=== PATIENT | male | born 1960 | race American Indian/Alaskan Native ===

== ENCOUNTER 2020-09-07 06:21 | Emergency (ER) | payer MEDICAID ==
[2020-09-07] MEDS ORDERED: ACETAMINOPHEN 325 MG TAB PO ONE (09:45)
--- NOTE | 2020-09-07 10:28 | XRay Report ---
CHEST 2 VIEWS INDICATION / CLINICAL INFORMATION: fever, generalized weakness. COMPARISON: None available. FINDINGS: SUPPORT DEVICES: None. HEART / MEDIASTINUM: No significant abnormality. LUNGS / PLEURA: There is a streaky opacity in the right lung base. Lungs otherwise appear clear. No p neumothorax. ADDITIONAL FINDINGS: No significant additional findings. IMPRESSION: 1. Streaky parenchymal opacity in the right lung base that could potentially represent chronic scarri ng. However, developing infectious process could also appear similar. Signer Name: Valentin Dang MD Signed: 09/07/2020 10:23 AM Workstation Name: [id number]
[2020-09-07 10:36] LABS: Basophils % (Auto) 0.4 % (0.0-1.8); Eosinophils % (Auto) 0.1 % (0.0-4.3); Hematocrit 40.3 % (35.5-45.6); Hemoglobin 13.5 gm/dl (11.8-15.2); Lymphocytes # (Auto) 1.6 K/mm3 (1.2-5.4); Lymphocytes % (Auto) 34.6 % (13.4-35.0); Mean Corpuscular HGB Conc 34 % (32-34); Mean Corpuscular Volume 90 fl (84-94); Monocytes # (Auto) 0.3 K/mm3 (0.0-0.8); Monocytes % (Auto) 7.1 % (0.0-7.3); Platelet Count 265 K/mm3 (140-440); Red Cell Distribution Width 14.2 % (13.2-15.2)
--- NOTE | 2020-09-07 10:36 | Emergency Department Report ---
ED General Adult HPI - General Chief complaint: Pain General Stated complaint: BODYACHES Time Seen by Provider: 09/07/20 09:38 Source: patient Mode of arrival: Ambulatory Limitations: No Limitations - History of Present Illness Initial comments: Patient is a 60-year-old male who presents emergency room with complaints of generalized body aches that began 3 days ago. He has associated decreased appetite, generalized weakness, chills, mild abdominal discomfort. He denies any nausea, vomiting, diarrhea, dysuria, dark urine, cough, shortness of breath, chest pain. He denies any past medical history. He states that he has an allergy to chloroquine. He denies any sick contacts or recent travel. Severity scale (0 -10): 5 - Related Data Previous Rx's Medication Instructions Recorded Last Taken Type Azithromycin [Zithromax Z-EHSAN] 250 mg PO DAILY 5 Days #6 tablet 09/07/20 Unknown Rx ED Review of Systems ROS: Stated complaint: BODYACHES Other details as noted in HPI Comment: All other systems reviewed and negative ED Past Medical Hx - Past Medical History Previous Medical History?: No - Surgical History Past Surgical History?: No - Social History Smoking Status: Former Smoker Substance Use Type: None - Medications Home Medications: Home Medications Medication Instructions Recorded Confirmed Last Taken Type Azithromycin [Zithromax Z-EHSAN] 250 mg PO DAILY 5 Days #6 tablet 09/07/20 Unknown Rx ED Physical Exam - General Limitations: No Limitations General appearance: alert, in no apparent distress - Head Head exam: Present: atraumatic, normocephalic - Eye Eye exam: Present: normal appearance - ENT ENT exam: Present: mucous membranes moist - Respiratory Respiratory exam: Present: normal lung sounds bilaterally. Absent: respiratory distress, wheezes, rales, rhonchi, stridor, chest wall tenderness, accessory muscle use, decreased breath sounds, prolonged expiratory - Cardiovascular Cardiovascular Exam: Present: regular rate, normal rhythm, normal heart sounds. Absent: systolic murmur, diastolic murmur, rubs, gallop - GI/Abdominal GI/Abdominal exam: Present: soft, normal bowel sounds. Absent: distended, tenderness, guarding, rebound, rigid - Neurological Exam Neurological exam: Present: alert, oriented X3 - Psychiatric Psychiatric exam: Present: normal affect, normal mood - Skin Skin exam: Present: warm, dry, intact ED Course Vital Signs 10/09/07/20 09/07/20 06:26 09:54 16:35 Temperature 100.8 F H 98.8 F Pulse Rate 84 81 Respiratory 19 16 16 Rate Blood Pressure 135/86 Blood Pressure 131/81 [Left] O2 Sat by Pulse 93 98 98 Oximetry ED Medical Decision Making - Lab Data Result diagrams: 09/07/20 10:05 09/07/20 10:05 Lab Results 09/07/20 09/07/20 09/07/20 Range/Units 10: 10:05 10:17 WBC 4.7 (4.5-11.0) K/mm3 RBC 4.50 (3.65-5.03) M/mm3 Hgb 13.5 (11.8-15.2) gm/dl Hct 40.3 (35.5-45.6) % MCV 90 (84-94) fl MCH 30 (28-32) pg MCHC 34 (32-34) % RDW 14.2 (13.2-15.2) % Plt Count 265 (140-440) K/mm3 Lymph % (Auto) 34.6 (13.4-35.0) % Gove % (Auto) 7.1 (0.0-7.3) % Eos % (Auto) 0.1 (0.0-4.3) % Baso % (Auto) 0.4 (0.0-1.8) % Lymph # (Auto) 1.6 (1.2-5.4) K/mm3 Gove # (Auto) 0.3 (0.0-0.8) K/mm3 Eos # (Auto) 0.0 (0.0-0.4) K/mm3 Baso # (Auto) 0.0 (0.0-0.1) K/mm3 Seg Neutrophils % 57.8 (40.0-70.0) % Seg Neutrophils # 2.7 (1.8-7.7) K/mm3 Sodium 136 L (137-145) mmol/L Potassium 3.9 (3.6-5.0) mmol/L Chloride 99.2 (98-107) mmol/L Carbon Dioxide 25 (22-30) mmol/L Anion Gap 16 mmol/L BUN 13 (9-20) mg/dL Creatinine 1.0 (0.8-1.3) mg/dL Estimated GFR > 60 ml/min BUN/Creatinine Ratio 13 % Glucose 169 H (75-100) mg/dL Calcium 8.5 (8.4-10.2) mg/dL Total Bilirubin 0.40 (0.1-1.2) mg/dL AST 30 (5-40) units/L ALT 34 (7-56) units/L Alkaline Phosphatase 61 (35-129) units/L Total Creatine Kinase 78 (55-170) units/L Total Protein 7.7 (6.3-8.2) g/dL Albumin 3.8 L (3.9-5) g/dL Albumin/Globulin Ratio 1.0 % Lipase 57 (13-60) units/L Urine Color Straw (Yellow) Urine Turbidity Clear (Clear) Urine pH 6.0 (5.0-7.0) Ur Specific [place] 1.002 L (1.003-1.030) Urine Protein <15 mg/dl (Negative) mg/dL Urine Glucose (UA) Neg (Negative) mg/dL Urine Ketones Neg (Negative) mg/dL Urine Blood Neg (Negative) Urine Nitrite Neg (Negative) Urine Bilirubin Neg (Negative) Urine Urobilinogen < 2.0 (<2.0) mg/dL Ur Leukocyte Esterase Neg (Negative) Urine WBC (Auto) < 1.0 (0.0-6.0) /HPF Urine RBC (Auto) < 1.0 (0.0-6.0) /HPF Urine Bacteria (Auto) 1+ (Negative) /HPF Vital Signs 09/07/20 09/07/20 09/07/20 06:26 09:54 16:35 Temperature 100.8 F H 98.8 F Pulse Rate 84 81 Respiratory 19 16 16 Rate Blood Pressure 135/86 Blood Pressure 131/81 [Left] O2 Sat by Pulse 93 98 98 Oximetry - Radiology Data Radiology results: report reviewed CHEST 2 VIEWS INDICATION / CLINICAL INFORMATION: fever, generalized weakness. COMPARISON: None available. FINDINGS: SUPPORT DEVICES: None. HEART / MEDIASTINUM: No significant abnormality. LUNGS / PLEURA: There is a streaky opacity in the right lung base. Lungs otherwise appear clear. No pneumothorax. ADDITIONAL FINDINGS: No significant additional findings. IMPRESSION: 1. Streaky parenchymal opacity in the right lung base that could potentially represent chronic scarring. However, developing infectious process could also appear similar. Signer Name: Valentin Dang MD Signed: 09/07/2020 10:23 AM Workstation Name: [id number] Transcribed By: GEOVANY Dictated By: Valentin Dang MD Electronically Authenticated By: Valentin Dang MD Signed Date/Time: 09/07/201022 DD/ 22 TD/TT: - Medical Decision Making Patient is a 60-year-old male who presents emergency room with complaints of generalized body aches that began 3 days ago. He has associated decreased appetite, generalized weakness, chills, mild abdominal discomfort. He denies any nausea, vomiting, diarrhea, dysuria, dark urine, cough, shortness of breath, chest pain. He denies any past medical history. He states that he has an allergy to chloroquine. He denies any sick contacts or recent travel. Initial vitals with fever and mild hypoxia, when patient was placed in exam room had rn chemical dependency repeat oxygen saturation and it was 98% on room air. No abnormality on physical examination as documented in chart. Labs are stable. UA is within normal limits. Chest x-ray 1. Streaky parenchymal opacity in the right lung base that could potentially represent chronic scarring. However, developing infectious process could also appear similar. Patient given Tylenol and ceftriaxone while in the emergency department. Discussed all results with patient and answered questions. Patient is presenting with the symptoms during COVID-19 pandemic, discussed the possibility of COVID-19 with patient, discussed strict return precautions, discussed outpatient testing, discussed self tammy rantine. Patient will be treated for community-acquired pneumonia. Patient given prescription for azithromycin. Advised patient to please take medication as prescribed. please increase your fluid intake over the next several days. May take Tylenol as needed for fever or body aches. May take ebai-glv-icniviu cold symptom relief medication such as Mucinex or TheraFlu. Follow-up with a primary care doctor for reexamination. Return to emergency room immediately for any new or worsening symptoms including but not limited to difficulty breathing, shortness of breath, severe chest pain, unable to tolerate by mouth intake, etc. Please self quarantine for 2 weeks from the onset of your symptom s. Please do not go out in public. If you are around others at home please wear a mask. If you need to cough or sneeze please do so in a napkin and immediately throw it away and immediately wash your hands. Wash your hands frequently. Wipe everything down. Recommend for you to get COVID-19 testing, may have this done at primary care doctor, health department, [facility] testing center. - Differential Diagnosis PNA, URI, influenza, viral syndrome, AUNG, dehydration, rhabdomyolysis, UTI Critical care attestation.: If time is entered above; I have spent that time in minutes in the direct care of this critically ill patient, excluding procedure time. ED Disposition Clinical Impression: Pneumonia Qualifiers: Pneumonia type: due to unspecified organism Laterality: right Lung location: lower lobe of lung Qualified Code(s): J18.9 - Pneumonia, unspecified organism Disposition: - TO HOME OR SELFCARE Is pt being admited?: No Does the pt Need Aspirin: No Condition: Stable Instructions: COVID-19, Community-acquired Pneumonia (ED) Additional Instructions: please take medication as prescribed. please increase your fluid intake over the next several days. May take Tylenol as needed for fever or body aches. May take ifej-hrg-aredpqn cold symptom relief medication such as Mucinex or TheraFlu. Follow-up with a primary care doctor for reexamination. Return to emergency room immediately for any new or worsening symptoms including but not limited to difficulty breathing, shortness of breath, severe chest pain, unable to tolerate by mouth intake, etc. Please self quarantine for 2 weeks from the onset of your symptoms. Please do not go out in public. If you are around others at home please wear a mask. If you need to cough or sneeze please do so in a napkin and immediately throw it away and immediately wash your hands. Wash your hands frequently. Wipe everything down. Recommend for you to get COVID- 19 testing, may have this done at primary care doctor, health department, [facility] testing center. Prescriptions: Azithromycin [Zithromax Z-EHSAN] 250 mg PO DAILY 5 Days #6 tablet Referrals: LYDIA MCFADDEN MD [Primary Care Provider] - 2-3 Days MONIQUE GUTIERRES MD [Staff Physician] - 2-3 Days [facility] [Provider Group] - 2-3 Days Time of Disposition: 11:40 Print Language: BURUNDIAN
[2020-09-07 10:58] LABS: Bacteria,Urine 1+ /HPF (Negative); Bilirubin,Urine NEG (Negative); Blood,Urine NEG (Negative); Color,Urine Straw (Yellow); Protein,Urine <15 mg/dL mg/dL (Negative); RBC,Urine < 1.0 /HPF (0.0-6.0); Urobilinogen,Urine < 2.0 mg/dL (<2.0); WBC,Urine < 1.0 /HPF (0.0-6.0)
[2020-09-07 11:03] LABS: Alanine Aminotransferase 34 units/L (7-56); Albumin 3.8 g/dL (3.9-5); BUN/Creatinine Ratio 13; Blood Urea Nitrogen 13 mg/dL (9-20); Calcium 8.5 mg/dL (8.4-10.2); Hemolysis Index 11
[2020-09-07] MEDS ORDERED: LIDOCAINE-MPF (1%) 10 MG/1 ML VIAL 5 ML INFILTRATI ONE (11:15)
[2020-09-07 16:36] VITALS: BP 131/81
== END 2020-09-07 12:11 | disposition home or self-care (01) ==
LOC: ED 06:21
DX: J18.9 Pneumonia, unspecified organism (principal); Z79.2 Long term (current) use of antibiotics
CPT/HCPCS: 36415; 71046; 80053; 81001; 82550; 83690; 85025; 96372; 99284; J0696

== ENCOUNTER 2020-09-10 16:36 | Emergency (ER) | payer MEDICAID ==
[2020-09-10 20:23] LABS: Basophils % (Auto) 0.2 % (0.0-1.8); Hematocrit 40.9 % (35.5-45.6); Hemoglobin 13.7 gm/dl (11.8-15.2); Lymphocytes # (Auto) 1.3 K/mm3 (1.2-5.4); Lymphocytes % (Auto) 10.1 % (13.4-35.0); Mean Corpuscular HGB Conc 33 % (32-34); Mean Corpuscular Volume 88 fl (84-94); Monocytes # (Auto) 0.4 K/mm3 (0.0-0.8); Monocytes % (Auto) 2.9 % (0.0-7.3); Platelet Count 352 K/mm3 (140-440); Red Blood Count 4.63 M/mm3 (3.65-5.03); Red Cell Distribution Width 14.3 % (13.2-15.2)
--- NOTE | 2020-09-10 20:27 | Emergency Department Report ---
HPI - General Chief Complaint: Pain General Time Seen by Provider: 09/10/20 20:03 - HPI HPI: This is a 60-year-old male who presents to the emergency department with a complaint of feeling "sick." The patient has a decreased appetite and generalized body aches. He was seen here 3 days ago for similar symptoms and was diagnosed with pneumonia and placed on azithromycin. The patient says he has been taking this medication without any relief. The chest x-ray from that time showed some streaky parenchymal opacity to the right lung base that could be chronic scarring but also could represent early pneumonia. Patient denies any fever, chest pain, shortness of breath, coughing, nausea, vomiting. He denies any past medical history. He does not have a primary care physician. Patient returns as he says he is not feeling improved. ED Past Medical Hx - Past Medical History Previous Medical History?: No - Surgical History Past Surgical History?: No - Social History Smoking Status: Former Smoker Substance Use Type: None - Medications Home Medications: Home Medications Medication Instructions Recorded Confirmed Last Taken Type Azithromycin [Zithromax Z-EHSAN] 250 mg PO DAILY 5 Days #6 tablet 09/07/20 Unknown Rx Ibuprofen [Motrin 800 MG tab] 800 mg PO Q8HR PRN #20 tablet 09/10/20 Unknown Rx ED Review of Systems ROS: Stated complaint: WEAKNESS Other details as noted in HPI Comment: All other systems reviewed and negative Constitutional: weakness, other (Fatigue). denies: chills, fever Eyes: denies: eye pain, vision change ENT: denies: ear pain, throat pain Respiratory: denies: cough, shortness of breath Cardiovascular: denies: chest pain, palpitations Gastrointestinal: denies: abdominal pain, vomiting Genitourinary: denies: dysuria, discharge Musculoskeletal: myalgia. denies: joint swelling Skin: denies: rash, lesions Neurological: denies: headache, weakness Physical Exam - Physical Exam Vital Signs: Vital Signs 09/10/20 16:50 Temperature 99.6 F Pulse Rate 95 H Respiratory 18 Rate Blood Pressure 108/71 O2 Sat by Pulse 94 Oximetry Physical Exam: GENERAL: The patient is well-developed well-nourished. HENT: Normocephalic. Atraumatic. Patient has moist mucous membranes. EYES: Extraocular motions are intact. No nystagmus. NECK: Supple. Trachea is midline. CHEST/LUNGS: Clear to auscultation. There is no respiratory distress noted. HEART/CARDIOVASCULAR: Regular. There is no tachycardia. There is no murmur. ABDOMEN: Abdomen is soft, nontender. Patient has normal bowel sounds. SKIN: Skin is warm and dry. NEURO: The patient is awake, alert, and oriented. The patient is cooperative. The patient has no focal neurologic deficits. Normal speech. Cranial nerves II through XII grossly intact. MUSCULOSKELETAL: There is no tenderness or deformity. There is no limitation range of motion. ED Course Vital Signs 09/10/20 16:50 Temperature 99.6 F Pulse Rate 95 H Respiratory 18 Rate Blood Pressure 108/71 O2 Sat by Pulse 94 Oximetry ED Medical Decision Making - Lab Data Result diagrams: 09/10/20 20:08 09/10/20 20:08 - Medical Decision Making Mr. Tripathi presents with continued body aches, decreased appetite, and generalized fatigue that has been going on for the past few days and was the same reason for his visit 2 days ago. On examination the patient does not have any focal, motor or sensory deficits and his cranial nerves are intact. He does not appear in any respiratory or acute distress. The patient did not want a repeat chest x-ray to be done. It was initially ordered through triage and I am okay with this as the patient denies any cough, shortness of breath and does not present with any fever. I did look at his previous chest x-ray and it showed some streaking to the right lung base that could have been chronic scarring versus some early pneumonia. Patient's labs today have been unremarkable including CBC, metabolic panel and TSH level. His vital signs have been reassuring including being afebrile. The patient does not appear to have any emergency medical condition or require admission. With the previous diagnosis of pneumonia and his current signs/sym ptoms, the patient may have a viral syndrome. Given this current pandemic, the patient has been instructed to isolate/quarantine himself and stay away from those that are immunocompromised, elderly or chronically ill/debilitated. He has been given multiple outpatient referrals for primary care. He will return to the emergency department with any worsening of his symptoms or any acute distress. Critical Care Time: No Critical care attestation.: If time is entered above; I have spent that time in minutes in the direct care of this critically ill patient, excluding procedure time. ED Disposition Clinical Impression: Body aches, Decreased appetite Fatigue Qualifiers: Fatigue type: unspecified Qualified Code(s): R53.83 - Other fatigue Disposition: DC-01 TO HOME OR SELFCARE Is pt being admited?: No Condition: Stable Instructions: Viral Syndrome (ED), Fatigue (ED) Additional Instructions: Please follow-up with a primary care physician in the next few days. I have given you a few different referrals for primary care physicians and clinics. Your set of symptoms may be related to a viral syndrome. Given this current pandemic, there is always the potential that you could have COVID-19. I am unable to test you for this at this time. I recommend that you seek outpatient testing of COVID-19. This can be done at some primary care offices, some urgent cares, and there should be a list of testing facilities through the [facility]. Please isolate from anybody who is immunocompromised, elderly, or chronically ill/debilitated. Return to the emergency department with any worsening of your symptoms, new or concerning symptoms not addressed during this current emergency department visit, or with any acute distress. Prescriptions: Ibuprofen [Motrin 800 MG tab] 800 mg PO Q8HR PRN #20 tablet PRN Reason: Pain , Severe (7-10) Referrals: LYDIA MCFADDEN MD [Primary Care Provider] - 3-5 Days VOLODYMYR VILLA MD [Staff Physician] - 3-5 Days [facility] [Provider Group] - 3-5 Days Time of Disposition: 21:07
[2020-09-10 20:42] LABS: Alanine Aminotransferase 32 units/L (7-56); Albumin 4.3 g/dL (3.9-5); BUN/Creatinine Ratio 15; Blood Urea Nitrogen 16 mg/dL (9-20); Calcium 9.1 mg/dL (8.4-10.2); Hemolysis Index 6
[2020-09-10 21:46] VITALS: BP 136/85
== END 2020-09-10 21:47 | disposition home or self-care (01) ==
LOC: ED 16:36
DX: R53.83 Other fatigue (principal); R63.0 Anorexia; R53.81 Other malaise; Z87.891 Personal history of nicotine dependence; Z79.1 Long term (current) use of non-steroidal anti-inflammatories (NSAID); Z79.2 Long term (current) use of antibiotics; Z88.8 Allergy status to other drugs, medicaments and biological substances
CPT/HCPCS: 36415; 80053; 84443; 85025

== ENCOUNTER 2021-12-03 05:32 | Emergency (ER) | payer MEDICAID, OTHER ==
[2021-12-03] MEDS ORDERED: ASPIRIN 81 MG TAB CHEW PO ONE (05:35)
[2021-12-03] MEDS ORDERED: NITROGLYCERIN 0.4 MG TAB SUBL SL PRN (05:35)
--- NOTE | 2021-12-03 05:39 | Emergency Department Report ---
ED General Adult HPI - General Stated complaint: L SIDE PAIN - History of Present Illness Initial comments: Patient presents with left-sided chest pain that radiates into his left arm. He woke up from sleep and then started having the pain. It was gradual onset. It started sometime this morning. There is no trauma associated with this. He has no fevers or chills per there is no cough or congestion. He states that the pain is worse with inspiration and worse with exertion. He has never had symptoms like this before. He has no recent injury. He has no abdominal pain. He did not take anything for the pain as of yet. - Related Data Previous Rx's Medication Instructions Recorded Last Taken Type Azithromycin [Zithromax Z-EHSAN] 250 mg PO DAILY 5 Days #6 tablet 09/07/20 Unknown Rx Ibuprofen [Motrin 800 MG tab] 800 mg PO Q8HR PRN #20 tablet 09/10/20 Unknown Rx Allergies Allergy/AdvReac Type Severity Reaction Status Date / Time chloroquine Allergy Hives Verified 09/10/20 16:49 ED Review of Systems ROS: Stated complaint: L SIDE PAIN Other details as noted in HPI Comment: All other systems reviewed and negative Constitutional: denies: fever Eyes: denies: vision change ENT: denies: throat pain Respiratory: denies: cough Cardiovascular: as per HPI Endocrine: denies: unexplained weight loss Gastrointestinal: denies: abdominal pain Genitourinary: denies: dysuria Musculoskeletal: denies: back pain Skin: denies: rash Neurological: denies: headache Hematological/Lymphatic: denies: easy bruising ED Past Medical Hx - Past Medical History Previous Medical History?: No - Family History Family history: no significant - Social History Smoking Status: Former Smoker Substance Use Type: None - Medications Home Medications: Home Medications Medication Instructions Recorded Confirmed Last Taken Type Azithromycin [Zithromax Z-EHSAN] 250 mg PO DAILY 5 Days #6 tablet 09/07/20 Unknown Rx Ibuprofen [Motrin 800 MG tab] 800 mg PO Q8HR PRN #20 tablet 09/10/20 Unknown Rx ED Physical Exam - General Limitations: No Limitations, Other (Pulse ox noted and normal) General appearance: alert, in no apparent distress - Head Head exam: Present: atraumatic, normocephalic - Eye Eye exam: Present: normal appearance, EOMI - ENT ENT exam: Present: normal orophraynx, normal external ear exam - Neck Neck exam: Present: normal inspection. Absent: meningismus - Respiratory Respiratory exam: Present: normal lung sounds bilaterally. Absent: respiratory distress - Cardiovascular Cardiovascular Exam: Present: regular rate, normal rhythm - GI/Abdominal GI/Abdominal exam: Present: soft. Absent: distended, tenderness - Extremities Exam Extremities exam: Present: normal capillary refill. Absent: pedal edema - Back Exam Back exam: Absent: CVA tenderness (R), CVA tenderness (L) - Neurological Exam Neurological exam: Present: alert, oriented X3, CN II-XII intact, normal gait. Absent: motor sensory deficit - Psychiatric Psychiatric exam: Present: normal affect, normal mood - Skin Skin exam: Present: warm, dry ED Course Vital Signs 12/03/21 05:36 Temperature 98.6 F Pulse Rate 84 Respiratory 18 Rate Blood Pressure 144/101 O2 Sat by Pulse 97 Oximetry - Reevaluation(s) Reevaluation #1: 12/03/21 05:38 IV, labs, and EKG were ordered. Old records reviewed. Reevaluation #2: 12/03/21 06:54 Work-up is being complete. Patient was subsequently discharged. ED Medical Decision Making - Lab Data Result diagrams: 12/03/21 06:02 12/03/21 06:02 - EKG Data -: EKG Interpreted by Me - EKG Data 12/03/21 06:00 0544-EKG shows a normal sinus rhythm at 73. Intervals are normal including a QRS of 75 and a QT corrected of 1-27. Patient has no ST elevation to suggest STEMI. There is no ST depression suggestive of ischemia. There is diffuse T wave flattening. There is no old EKG for comparison. - Medical Decision Making Patient presented with left-sided chest pain. Etiology for this is unknown. Heart score is sufficiently low that we will allow outpatient discharge. His heart score is 2. At this time, there is no clinical evidence of pneumonia or pneumothorax. He does not have a pulse deficit suggestive of aortic dissection. Patient does not have symptoms suggestive of PE. He will be treated symptomatically and referred for outpatient evaluation and follow-up. Critical Care Time: No Critical care attestation.: If time is entered above; I have spent that time in minutes in the direct care of this critically ill patient, excluding procedure time. ED Disposition Clinical Impression: Left-sided chest pain, Hyperglycemia Disposition: HOME / SELF CARE / HOMELESS Is pt being admited?: No Condition: Stable Instructions: Nonspecific Chest Pain, Adult, Hyperglycemia Additional Instructions: Take an aspirin every day. Drink plenty water. Return for problems. Follow-up with your family doctor and personal clothing laundry aide. Your sugars have been elevated. Avoid carbohydrates and sugary foods. Follow-up for repeat glucose testing. Take an aspirin every day. Referrals: PRIMARY CAREMD [Referring] - 3-5 Days EARLENE CUMMINGS MD [Staff Physician] - 3-5 Days KATIE GARCIA MD [Staff Physician] - 3-5 Days
[2021-12-03 06:26] LABS: Hematocrit 42.9 % (35.5-45.6); Hemoglobin 13.9 gm/dl (11.8-15.2); Mean Corpuscular HGB Conc 32 % (32-34); Mean Corpuscular Volume 90 fl (84-94); Platelet Count 268 K/mm3 (140-440); Red Blood Count 4.77 M/mm3 (3.65-5.03); Red Cell Distribution Width 14.4 % (13.2-15.2)
--- NOTE | 2021-12-03 06:34 | XRay Report ---
CHEST 2 VIEWS INDICATION: cp X 3 DAYS. COMPARISON: 09/07/2020 FINDINGS: SUPPORT DEVICES: None. HEART: Within normal limits. LUNGS/PLEURA: No acute air space or interstitial disease. No pneumothorax. ADDITIONAL FINDINGS: None. IMPRESSION: 1. No acute findings. Signer Name: Miller Thakkar MD Signed: 12/03/2021 6:29 AM Workstation Name: [id number]
[2021-12-03 06:48] LABS: BUN/Creatinine Ratio 15; Blood Urea Nitrogen 12 mg/dL (9-20); Calcium 9.2 mg/dL (8.4-10.2); Hemolysis Index 8
[2021-12-03 07:51] VITALS: BP 155/100
--- NOTE | 2021-12-04 09:55 | Electrocardiograph Report ---
[facility] Test Date: 2021-12-03 Test Time: 05:44:45 Pat Name: GEETHA ALBRIGHT Department: Room: Gender: M Snow Maker: LUPE : 1960 Requested By: JUN MILLIGAN Order Number: [id number] Reading MD: Christian Zafar Measurements Intervals [place] Rate: 73 P: 47 WI: 186 QRS: 30 QRSD: 75 T: 50 QT: 388 QTc: 427 Interpretive Statements Sinus rhythm Probable left atrial enlargement Probable anteroseptal infarct, old No previous ECG available for comparison Electronically Signed On 12-04-2021 9:54:54 EST by Christian Zafar
== END 2021-12-03 07:20 | disposition home or self-care (01) ==
LOC: ED 05:32
DX: R07.89 Other chest pain (principal); R73.9 Hyperglycemia, unspecified; Z87.891 Personal history of nicotine dependence; Z88.8 Allergy status to other drugs, medicaments and biological substances; Z79.899 Other long term (current) drug therapy
CPT/HCPCS: 36415; 71046; 80048; 84484; 85027; 93005; 99284

== ENCOUNTER 2022-03-13 06:03 | Emergency (ER) | payer OTHER ==
[2022-03-13] MEDS ORDERED: ASPIRIN 81 MG TAB CHEW PO ONE (06:20)
[2022-03-13 06:50] LABS: Basophils % (Auto) 0.5 % (0.0-1.8); Eosinophils # (Auto) 0.2 K/mm3 (0.0-0.4); Eosinophils % (Auto) 3.1 % (0.0-4.3); Hematocrit 42.4 % (35.5-45.6); Lymphocytes % (Auto) 40.9 % (13.4-35.0); Mean Corpuscular HGB Conc 33 % (32-34); Mean Corpuscular Volume 91 fl (84-94); Monocytes # (Auto) 0.4 K/mm3 (0.0-0.8); Monocytes % (Auto) 5.3 % (0.0-7.3); Platelet Count 262 K/mm3 (140-440); Red Blood Count 4.68 M/mm3 (3.65-5.03)
[2022-03-13 06:54] LABS: INR 0.85 (0.87-1.13); Partial Thromboplastin Time 26.9 Sec. (24.2-36.6)
--- NOTE | 2022-03-13 07:00 | Emergency Department Report ---
ED Chest Pain HPI - General Chief Complaint: Chest Pain Stated Complaint: FOLLOW UP Time Seen by Provider: 03/13/22 06:19 Source: patient Mode of arrival: Ambulatory Limitations: No Limitations - History of Present Illness Initial Comments: Patient is 61 years old male with no significant past medical history. Patient presented to the ER complaining of left-sided chest pain for the last 3 days. Patient describes his pain as dull aching, intermittent with no radiation. Patient denies any shortness of breath, cough, fever or chills. Patient denies any history of heart problems. MD Complaint: chest pain -: days(s) (3) Onset: during rest Pain Location: left chest Severity scale (0 -10): 0 Quality: aching Consistency: intermittent Improves With: nothing Worsens With: nothing Treatments Prior to Arrival: none - Related Data Previous Rx's Medication Instructions Recorded Last Taken Type Azithromycin [Zithromax Z-EHSAN] 250 mg PO DAILY 5 Days #6 tablet 09/07/20 Unknown Rx Ibuprofen [Motrin 800 MG tab] 800 mg PO Q8HR PRN #20 tablet 09/10/20 Unknown Rx Allergies Allergy/AdvReac Type Severity Reaction Status Date / Time chloroquine Allergy Hives Verified 03/13/22 07:27 Heart Score - HEART Score History: Slightly suspicious EKG: Non-specific Age: 45-65 Risk factors: 1-2 risk factors Troponin: < normal limit HEART Score: 3 - EKG Read Time Time EKG Completed: 06:15 EKG Read Time: 06:17 - Critical Actions Critical Actions: 0-3 pts:0.9-1.7%risk of adverse cardiac event.Candidate for discharge ED Review of Systems ROS: Stated complaint: FOLLOW UP Other details as noted in HPI ED Past Medical Hx - Past Medical History Previous Medical History?: No - Surgical History Past Surgical History?: No - Social History Smoking Status: Former Smoker Substance Use Type: None - Medications Home Medications: Home Medications Medication Instructions Recorded Confirmed Last Taken Type Azithromycin [Zithromax Z-EHSAN] 250 mg PO DAILY 5 Days #6 tablet 09/07/20 Unknown Rx Ibuprofen [Motrin 800 MG tab] 800 mg PO Q8HR PRN #20 tablet 09/10/20 Unknown Rx ED Physical Exam - General Limitations: No Limitations General appearance: alert, in no apparent distress - Head Head exam: Present: atraumatic, normocephalic, normal inspection - Eye Eye exam: Present: normal appearance - ENT ENT exam: Present: normal exam, normal orophraynx, mucous membranes moist - Neck Neck exam: Present: normal inspection, full ROM. Absent: tenderness, meningismus - Respiratory Respiratory exam: Present: normal lung sounds bilaterally - Cardiovascular Cardiovascular Exam: Present: regular rate, normal rhythm, normal heart sounds - GI/Abdominal GI/Abdominal exam: Present: soft, normal bowel sounds. Absent: distended, tenderness, guarding, rebound, rigid, organomegaly, mass, bruit, pulsatile mass, hernia - Extremities Exam Extremities exam: Present: normal inspection, full ROM, normal capillary refill. Absent: tenderness - Back Exam Back exam: Present: normal inspection, full ROM. Absent: CVA tenderness (R), CVA tenderness (L) - Neurological Exam Neurological exam: Present: alert, oriented X3, CN II-XII intact, normal gait, reflexes normal. Absent: motor sensory deficit - Psychiatric Psychiatric exam: Present: normal mood - Skin Skin exam: Present: warm, intact, normal color ED Course Vital Signs 03/13/22 03/13/22 03/13/22 06:04 07:25 08:28 Temperature 98.6 F Pulse Rate 69 69 60 Respiratory 16 Rate Blood Pressure 174/98 146/82 133/70 [Right] O2 Sat by Pulse 99 97 98 Oximetry ED Medical Decision Making - Lab Data Result diagrams: 03/13/22 06:26 03/13/22 06:26 - EKG Data -: EKG Interpreted by Sd EKG shows normal: sinus rhythm Rate: normal - EKG Data Interpretation: no acute changes - Radiology Data Radiology results: report reviewed - Medical Decision Making Patient is 61 years old male with no significant past medical history. Patient presented to the ER complaining of left-sided chest pain for the last 3 days. Patient describes his pain as dull aching, intermittent with no radiation. Patient denies any shortness of breath, cough, fever or chills. Patient denies any history of heart problems. EKG showed no ST elevation. Chest x-ray is unremarkable. Labs reviewed and is unremarkable including a negative troponin x2. Heart score is 3. Patient remained chest pain-free during his entire ER stay. I strongly advised the kushal ware to follow-up with his primary care physician for outpatient cardiac work- up. I also gave the patient [facility] to follow-up with. Critical care attestation.: If time is entered above; I have spent that time in minutes in the direct care of this critically ill patient, excluding procedure time. ED Disposition Clinical Impression: Acute chest pain Disposition: HOME / SELF CARE / HOMELESS Is pt being admited?: No Condition: Stable Instructions: Nonspecific Chest Pain, Adult, Chest Pain (ED) Referrals: PRIMARY CAREMD [Primary Care Provider] - 3-5 Days [facility] [Provider Group] - 3-5 Days
[2022-03-13 07:01] LABS: Alanine Aminotransferase 14 units/L (7-56); Albumin 4.6 g/dL (3.9-5); BUN/Creatinine Ratio 24; Blood Urea Nitrogen 19 mg/dL (9-20); Calcium 9.3 mg/dL (8.4-10.2); Hemolysis Index 20
[2022-03-13 07:06] LABS: Bilirubin,Direct < 0.2 mg/dL (0-0.2)
--- NOTE | 2022-03-13 11:02 | Electrocardiograph Report ---
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
[2022-03-13 12:42] VITALS: BP 151/78
--- NOTE | 2022-03-13 13:42 | XRay Report ---
CHEST 2 VIEWS INDICATION / CLINICAL INFORMATION: Chest Pain. COMPARISON: 12/03/2021 FINDINGS: SUPPORT DEVICES: None. HEART / MEDIASTINUM: No significant abnormality. LUNGS / PLEURA: No significant pulmonary or pleural abnormality. No pneumothorax. ADDITIONAL FINDINGS: No significant additional findings. IMPRESSION: 1. No acute findings. Signer Name: Valentin Dang MD Signed: 03/13/2022 1:37 PM Workstation Name: [id number]
== END 2022-03-13 12:42 | disposition home or self-care (01) ==
LOC: ED 06:03
DX: R07.9 Chest pain, unspecified (principal); Z87.891 Personal history of nicotine dependence; Z88.8 Allergy status to other drugs, medicaments and biological substances
CPT/HCPCS: 36415; 71046; 80048; 80076; 83690; 83880; 84484; 85025; 85610; 85730; 93005; 99284